=== PATIENT | female | born 1975 | race Caucasian/White ===

== ENCOUNTER 2023-05-14 15:10 | Emergency (ER) | payer MEDICAID ==
[~2023-05-14] VITALS: Ht 170.2 cm; Wt 49.2 kg
[2023-05-14 15:15] VITALS: TEMP 97.9
[2023-05-14] MEDS ORDERED: LORazepam 2 mg/ml vial IV ONE ×2 (17:15→19:40)
[2023-05-14] MEDS ORDERED: ringers solution, lacted 1,000 ML IV ONE (17:15)
[2023-05-14 19:14] LABS: BASOPHILS # (AUTO) 0.1 X10'3 (0-0.2); BASOPHILS % (AUTO) 0.7 % (0-1); EOSINOPHILS % (AUTO) 0.3 % (0-6); HEMATOCRIT 40.7 % (35.0-45.0); HEMOGLOBIN 13.4 g/dl (12.0-16.0); LYMPHOCYTES # (AUTO) 1.7 X10'3 (1.1-4.8); LYMPHOCYTES % (AUTO) 18.7 % (21-51); MEAN CORPUSCULAR HEMOGLOBIN 35.2 PG (27.0-31.0); MEAN CORPUSCULAR HGB CONC 32.8 g/dL (33.0-36.5); MEAN CORPUSCULAR VOLUME 107.2 FL (78-98); MEAN PLATELET VOLUME 7.5 FL (7.4-10.4); MONOCYTES # (AUTO) 0.4 X10'3 (0-0.9); NEUTROPHILS # (AUTO) 6.7 X10'3 (1.8-7.7); NEUTROPHILS % (AUTO) 75.3 % (42-75); PLATELET COUNT 372 X10'3 (140-440); RED CELL DISTRIBUTION WIDTH 13.8 % (11.5-14.5); WHITE BLOOD COUNT 8.9 X10'3 (4.5-11.0)
[2023-05-14 19:15] VITALS: BP 118/75; PULSE 88; RESP 16; O2SAT 98
[2023-05-14 19:15] LABS: ALANINE AMINOTRANSFERASE 8 U/L (12-78); ALBUMIN 3.6 G/DL (3.4-5.0); ALBUMIN/GLOBULIN RATIO 1.1 (1.1-1.5); ALKALINE PHOSPHATASE 58 IU/L (46-116); ANION GAP 13 (8-16); BILIRUBIN,TOTAL 0.4 MG/DL (0.1-1.0); BLOOD UREA NITROGEN 6 MG/DL (7-18); BUN/CREATININE RATIO 8.5 (10.0-20.0); CALCIUM 8.5 MG/DL (8.5-10.1); CHLORIDE 104 MMOL/L (99-107); CREATININE 0.71 MG/DL (0.40-0.90); GLUCOSE 100 MG/DL (70-104); SODIUM 139 MMOL/L (135-145); TOTAL CARBON DIOXIDE 22.4 MMOL/L (24-32); eCRCL 77 ML/MIN; eGFR 89 ML/MIN
[2023-05-14 19:17] LABS: ASPARTATE AMINO TRANSFERASE 31 U/L (10-37); POTASSIUM 4.1 MMOL/L (3.5-5.1)
[2023-05-14] MEDS ORDERED: CHLO1CAP PO (19:40)
--- NOTE | 2023-05-14 19:53 | NUR ---
iv dc'd pt being discharged dressing applied
[2023-05-15] MEDS ORDERED: GABA300C PO (10:55)
== END 2023-05-14 19:54 | disposition home or self-care (01) ==
LOC: ER 15:12
DX: F10.139 Alcohol abuse with withdrawal, unspecified (principal); Y90.9 Presence of alcohol in blood, level not specified
CPT/HCPCS: 80053; 82948; 85025; 93005; 96361; 96374; 96375; 99284; J2060; J7120